=== PATIENT | female | born 1990 | race Caucasian/White ===

== ENCOUNTER 2017-04-04 10:47 | Emergency (ER) | payer BC, MEDICAID, OTHER ==
[2017-04-04 10:47] VITALS: BMI 25.8
[2017-04-04 11:07] VITALS: RESP 18
--- NOTE | 2017-04-04 11:14 | C.PDOC ---
History Of Present Illness 26 year old female presents to ED with complaints of right elbow pain since last night. She states she hit her elbow against table. She is unable to fully straighten arm secondary to pain. She took pain killer with minimal relief. No other complaints at this time. Time Seen by Provider: 04/04/17 11:09 Chief Complaint (Nursing): Upper Extremity Problem/Injury History Per: Patient History/Exam Limitations: no limitations Onset/Duration Of Symptoms: Days Current Symptoms Are (Timing): Still Present Exacerbating Factor(s): Movement Recent travel outside of the [place]: No Past Medical History Reviewed: Historical Data, Nursing Documentation, Vital Signs Vital Signs: Last Vital Signs Temp 98 F 04/04/17 12:43 Pulse 69 04/04/17 12:43 Resp 18 04/04/17 12:43 BP 124/75 04/04/17 12:43 Pulse Ox 98 04/04/17 12:43 - Medical History PMH: Anxiety, Asthma Surgical History: No Surg Hx - [facility] Procedures NEBULIZER THERAPY (06/27/00) OTHER NONOP RESPIRATORY MEASURE (06/27/00) Family History: States: Unknown Family Hx - Social History Hx Alcohol Use: No Hx Substance Use: No Review Of Systems Cardiovascular: Negative for: Chest Pain Musculoskeletal: Positive for: Arm Pain (R elbow area) Physical Exam - Physical Exam Appears: Well, Non-toxic Skin: Normal Color, Warm, Dry Head: Atraumatic, Normacephalic Eye(s): bilateral: Normal Inspection, EOMI Oral Mucosa: Moist Neck: Normal ROM Chest: Symmetrical Extremity: Tenderness (lateral Right elbow), Swelling (mild swelling of Right elbow area. ), Other (pain upon extension. ) Pulses: Right Radial: Normal Neurological/Psych: Oriented x3, Normal Speech Gait: Steady ED Course And Treatment O2 Sat by Pulse Oximetry: 99 (room air) Pulse Ox Interpretation: Normal - Other Rad Elbow XRay X-Ray: Interpreted by Me, Viewed By Me Interpretation: Right elbow shows fat pad and suspect fracture Medical Decision Making Medical Decision Making: Impression: elbow injury Plan: * Xray elbow * ice pack * declined analgesic Progress, Reassess and Dispo: XRay shows fat pad and suscpect fracture Posterior splint applied by CP and checked by me Patient instructed to follow up with orthopedic. Disposition Counseled Patient/Family Regarding: Studies Performed, Diagnosis, Need For Followup, Rx Given - Disposition Referrals: Nilesh Stewart III, MD [Staff Provider] - Disposition: HOME/ ROUTINE Disposition Time: 11:54 Condition: STABLE Additional Instructions: Your xray shows a fracture. It is very important you follow up with orthopedic within 1-4 days. A splint has been applied which is a temporary cast. Do not wet splint, keep out of bath, and consider plastic bag. Take pain medication as needed. Seek medical attention if develop any numbness or pins and needle sensation. Prescriptions: traMADol [Ultram] 50 mg PO Q8 #20 tab Instructions: Elbow Fracture in Adults (ED) Forms: [facility] (Albanian) - POA Present On Arrival: None - Clinical Impression Clinical Impression: Elbow fracture - Scribe Statement The provider has reviewed the documentation as recorded by the Scribe Chiara Win All medical record entries made by the Scribe were at my direction and personally dictated by me. I have reviewed the chart and agree that the record accurately reflects my personal performance of the history, physical exam, medical decision making, and the department course for this patient. I have also personally directed, reviewed, and agree with the discharge instructions and disposition.
--- NOTE | 2017-04-04 12:23 | RAD ---
Right elbow three views History: Injury. Comparison: None available. Technique: Three views of the right elbow. Findings: No evidence for acute displaced fracture or dislocation. No significant elbow joint effusion. Impression: Negative acute. If pain persists, consider MRI.
[2017-04-04 12:43] VITALS: BP 124/75; PULSE 69; TEMP 98
[2017-04-04 14:58] VITALS: O2SAT 99
== END 2017-04-04 12:45 | disposition home or self-care (01) ==
LOC: C.ER 10:47
DX: S42.401A Unspecified fracture of lower end of right humerus, initial encounter for closed fracture (principal); W22.8XXA Striking against or struck by other objects, initial encounter